=== PATIENT | female | born 1975 | race Caucasian/White ===

== ENCOUNTER 2016-09-18 17:18 | Emergency (ER) | payer OTHER ==
[~2016-09-18] VITALS: Ht 165.1 cm; Wt 104.6 kg
[~2016-09-18 17:18] MED LIST: BUSP10TA; ONDA4TAB7
[2016-09-18] MEDS ORDERED: LORazepam 1MG TABLET ONE (17:29)
[2016-09-18] MEDS ORDERED: LORazepam 1MG TABLET PO ONE (17:30)
[2016-09-18] MEDS ORDERED: METH500T7 PO (17:35)
[2016-09-18] MEDS ORDERED: SUCR1TAB PO (17:35)
[2016-09-18] MEDS ORDERED: OXYC-302 PO (17:35)
[2016-09-18 17:49] LABS: HEMOGLOBIN 12.9 g/dL (11.7-16.4)
[2016-09-18 17:56] LABS: BLOOD UREA NITROGEN 9 mg/dL (7-18)
[2016-09-18] MEDS ORDERED: POTASSIUM CHLORIDE 20 MEQ TAB.ER.PRT PO ONE (18:30)
[2016-09-18] MEDS ORDERED: POTASSIUM CHLORIDE 20 MEQ TAB.ER.PRT ONE (19:18)
[2016-09-18 20:50] VITALS: BP 138/95
== END 2016-09-18 20:52 | disposition home or self-care (01) ==
LOC: ED 19:15
DX: O26.891 Other specified pregnancy related conditions, first trimester (principal); F41.1 Generalized anxiety disorder; E87.6 Hypokalemia; F17.200 Nicotine dependence, unspecified, uncomplicated
CPT/HCPCS: 36415; 76830; 80048; 82040; 84702; 84703; 85025; 93005

== ENCOUNTER 2016-10-21 11:25 | Emergency (ER) | payer OTHER ==
[~2016-10-21] VITALS: Ht 165.1 cm; Wt 104.8 kg
[~2016-10-21 11:25] MED LIST changes: +METH500T7 PO; +OXYC-302 PO; +SUCR1TAB PO
[2016-10-21 11:27] VITALS: BP 122/84
[2016-10-21] MEDS ORDERED: AMIT25TA PO (12:01)
[2016-10-21] MEDS ORDERED: FAMO-79 PO (12:01)
[2016-10-21] MEDS ORDERED: HYDROcodone/APAP 5/325 TABLET PO ONE (12:30)
[2016-10-21] MEDS ORDERED: HYDROcodone/APAP 5/325 TABLET ONE (12:34)
[2016-10-21] MEDS ORDERED: LORazepam 1MG TABLET ONE (14:55)
[2016-10-21] MEDS ORDERED: LORazepam 1MG TABLET PO ONE (15:00)
== END 2016-10-21 15:21 | disposition home or self-care (01) ==
LOC: ED 11:40
DX: O03.4 Incomplete spontaneous abortion without complication (principal); Z3A.08 8 weeks gestation of pregnancy
CPT/HCPCS: 36415; 76830; 81003; 84702; 85025; 86901

== ENCOUNTER 2016-10-22 21:02 | Emergency (ER) | payer OTHER ==
[~2016-10-22] VITALS: Ht 165.1 cm; Wt 106.0 kg
[~2016-10-22 21:02] MED LIST changes: +AMIT25TA PO; +FAMO-79 PO
[2016-10-22] MEDS ORDERED: ONDANSETRON ODT 4 MG PO ONE (22:00)
[2016-10-22] MEDS ORDERED: OXYcodone/APAP 5/325MG TABLET PO ONE (22:00)
[2016-10-22] MEDS ORDERED: ONDANSETRON ODT 4 MG ONE (22:38)
[2016-10-22] MEDS ORDERED: OXYcodone/APAP 5/325MG TABLET ONE (22:38)
[2016-10-22] MEDS ORDERED: MORPHINE SULFATE 4 MG/ML, 1ML ONE (22:44)
[2016-10-22] MEDS ORDERED: ONDANSETRON 2MG/ML, 2ML ONE (22:44)
[2016-10-22] MEDS ORDERED: SODIUM CHLORIDE FLUSH 10ML SYR IVF ONE (23:00)
[2016-10-22] MEDS ORDERED: MORPHINE SULFATE 4 MG/ML, 1ML IVPush PRN (23:00)
[2016-10-22] MEDS ORDERED: SODIUM CHLORIDE 0.9% 1,000ML IVBOLUS ONE (23:00)
[2016-10-22] MEDS ORDERED: ONDANSETRON 2MG/ML, 2ML IVPush ONE (23:00)
[2016-10-22 23:28] VITALS: BP 112/71
== END 2016-10-23 01:00 | disposition home or self-care (01) ==
LOC: ED 23:59
DX: O03.4 Incomplete spontaneous abortion without complication (principal)
CPT/HCPCS: 36415; 85025; 96361; 96374; 96375; 99284; J2405; J7030

== ENCOUNTER 2017-01-17 08:37 | Emergency (ER) | payer OTHER ==
[~2017-01-17] VITALS: Ht 165.1 cm; Wt 102.0 kg
[2017-01-17] MEDS ORDERED: PANTOPRAZOLE 20MG TABLET PO ONE (10:00)
[2017-01-17] MEDS ORDERED: MAALOX/HYOSCYAMINE/LIDOCAINE 45 ML BTL PO ONE (10:00)
[2017-01-17] MEDS ORDERED: LORazepam 2 MG/ML, 1ML IM ONE (10:00)
[2017-01-17] MEDS ORDERED: MAALOX/HYOSCYAMINE/LIDOCAINE 45 ML BTL ONE (10:21)
[2017-01-17] MEDS ORDERED: PANTOPRAZOLE 20MG TABLET ONE (10:21)
[2017-01-17] MEDS ORDERED: LORazepam 2 MG/ML, 1ML ONE (10:22)
[2017-01-17 12:27] VITALS: BP 125/83
== END 2017-01-17 12:29 | disposition home or self-care (01) ==
LOC: ED 09:58
DX: F41.1 Generalized anxiety disorder (principal); K22.6 Gastro-esophageal laceration-hemorrhage syndrome; K21.9 Gastro-esophageal reflux disease without esophagitis; J45.909 Unspecified asthma, uncomplicated; F32.9 Major depressive disorder, single episode, unspecified
CPT/HCPCS: 96372; 99283; J2060

== ENCOUNTER 2017-03-11 12:34 | Emergency (ER) | payer OTHER ==
[~2017-03-11] VITALS: Ht 165.1 cm; Wt 100.0 kg
[2017-03-11] MEDS ORDERED: ONDANSETRON 2MG/ML, 2ML ONE (13:19)
[2017-03-11] MEDS ORDERED: LORazepam 2 MG/ML, 1ML ONE (13:20)
[2017-03-11] MEDS ORDERED: SODIUM CHLORIDE FLUSH 10ML SYR IVF ONE (13:30)
[2017-03-11] MEDS ORDERED: ONDANSETRON 2MG/ML, 2ML IVPush ONE (13:30)
[2017-03-11] MEDS ORDERED: LORazepam 2 MG/ML, 1ML IVPush ONE (13:30)
[2017-03-11 13:39] LABS: HEMATOCRIT 38.3 % (34.6-47.8); WHITE BLOOD COUNT 9.5 x10^3/uL (3.4-10)
[2017-03-11 13:49] LABS: ASPARTATE AMINO TRANSFERASE 28 U/L (15-37); BLOOD UREA NITROGEN 12 mg/dL (7-18)
[2017-03-11 13:55] LABS: IS PT STATUS REG ER OR PRE ER? YES
[2017-03-11] MEDS ORDERED: KETOROLAC 30 MG/1 ML ONE (15:11)
[2017-03-11] MEDS ORDERED: KETOROLAC 30 MG/1 ML IVPush ONE (15:30)
[2017-03-11 16:31] LABS: IS PT STATUS REG ER OR PRE ER? YES
[2017-03-11 16:57] VITALS: BP 140/79
== END 2017-03-11 16:59 | disposition home or self-care (01) ==
LOC: ED 12:51
DX: F41.1 Generalized anxiety disorder (principal); R06.4 Hyperventilation; R07.9 Chest pain, unspecified; K21.9 Gastro-esophageal reflux disease without esophagitis; J45.909 Unspecified asthma, uncomplicated; F17.200 Nicotine dependence, unspecified, uncomplicated
CPT/HCPCS: 36415; 71010; 80053; 83880; 84484; 85025; 85610; 85730; 93005; 96374; 96375; 99285; J1885; J2060; J2405

== ENCOUNTER 2017-08-15 04:59 | Emergency (ER) | payer OTHER ==
[~2017-08-15] VITALS: Ht 162.6 cm; Wt 109.0 kg
[2017-08-15] MEDS ORDERED: SODIUM CHLORIDE 0.9% 1,000 ML IV ONE (05:22)
[2017-08-15] MEDS ORDERED: ONDANSETRON 2MG/ML, 2ML IVPush ONE (05:30)
[2017-08-15] MEDS ORDERED: SODIUM CHLORIDE FLUSH 10ML SYR IVF ONE (05:30)
[2017-08-15] MEDS ORDERED: SODIUM CHLORIDE 0.9% 1,000ML IVBOLUS ONE (05:30)
[2017-08-15] MEDS ORDERED: DICYCLOMINE 10 MG/ML, 2ML IM ONE (05:30)
[2017-08-15] MEDS ORDERED: DICYCLOMINE 10 MG/ML, 2ML ONE (05:35)
[2017-08-15] MEDS ORDERED: ONDANSETRON 2MG/ML, 2ML ONE (05:35)
[2017-08-15 05:37] LABS: BASOPHILS # (AUTO) 0.01 x10^3/uL (0-0.1); BASOPHILS % (AUTO) 0 % (0-1); EOSINOPHILS % (AUTO) 1 % (1-7); LYMPHOCYTES # (AUTO) 0.44 x10^3/uL (1-3.4); LYMPHOCYTES % (AUTO) 4 % (22-44); MD NO; MEAN CORPUSCULAR HEMOGLOBIN 31.8 pg (27.0-34.8); MEAN CORPUSCULAR HGB CONC 34.3 g/dL (32.4-35.8); MEAN CORPUSCULAR VOLUME 92.7 fL (80-100); MEAN PLATELET VOLUME 7.9 fL (7.4-10.4); MONOCYTES # (AUTO) 0.33 x10^3/uL (0.2-0.8); MONOCYTES % (AUTO) 3 % (2-9); NEUTROPHILS # (AUTO) 10.99 x10^3/uL (1.8-6.8); NEUTROPHILS % (AUTO) 93 % (42-75); PLATELET COUNT 362 x10^3/uL (130-400); RED BLOOD COUNT 4.83 x10^6/uL (3.82-5.3); RED CELL DISTRIBUTION WIDTH 14.6 % (9.6-15.2)
[2017-08-15 05:48] LABS: ALANINE AMINOTRANSFERASE 32 U/L (12-78); ALBUMIN 3.9 g/dL (3.4-5.0); ANION GAP 12 mmol/L (5-15); CALCIUM 9.2 mg/dL (8.5-10.1); CHLORIDE 108 mmol/L (98-107); CREATININE 0.93 mg/dL (0.55-1.02)
[2017-08-15 05:53] LABS: ALKALINE PHOSPHATASE 110 U/L (45-117); BILIRUBIN,TOTAL 0.8 mg/dL (0.2-1.0)
[2017-08-15 07:42] LABS: RAPID INFLUENZA A Negative (Negative); RAPID INFLUENZA B Negative (Negative)
[2017-08-15 07:55] LABS: MICROSCOPIC INDICATED
[2017-08-15 08:02] LABS: CULTURE INDICATED? YES
[2017-08-15] MEDS ORDERED: OMNIPAQUE 350 MG/ML, 150 ML BOTTLE ONE (08:55)
[2017-08-15 09:17] LABS: CLOSTRIDIUM DIFFICILE ANTIGEN NEGATIVE; CLOSTRIDIUM DIFFICILE TOXIN NEGATIVE (Negative)
[2017-08-15 10:20] VITALS: BP 122/82
== END 2017-08-15 10:24 | disposition home or self-care (01) ==
LOC: ED 06:57
DX: K52.9 Noninfective gastroenteritis and colitis, unspecified (principal); G89.29 Other chronic pain; K21.9 Gastro-esophageal reflux disease without esophagitis
CPT/HCPCS: 36415; 74177; 80053; 81001; 83690; 84703; 85025; 87086; 87324; 87400; 89055; 93005; 96361; 96372; 96374; 99285; J0500; J2405; J7030; Q9967

== ENCOUNTER 2018-11-23 17:33 | Emergency (ER) | payer OTHER ==
[~2018-11-23] VITALS: Ht 165.1 cm; Wt 109.0 kg
--- NOTE | 2018-11-23 18:04 | NUR ---
CONTACT WITH PT, 43 YR OLD FEMALE HERE WITH C/O "I'M HAVING AN ANXIETY ATTACK. OUT OF XANAX. TOOK THE LAST ONE YESTERDAY"
[2018-11-23] MEDS ORDERED: ONDANSETRON ODT 4 MG ONE (18:30)
--- NOTE | 2018-11-23 18:32 | NUR ---
PT WITH EPISODE OF DRY HEAVING AND VOMITING. "HAS BEEN GOING ON TODAY" DISCUSSED WITH DR HOUSTON, [facility]. PT CONT SR PER MONITOR. PTS MOTHER AT BEDSIDE.
[2018-11-23 18:34] LABS: BASOPHILS # (AUTO) 0.07 x10^3/uL (0-0.1); BASOPHILS % (AUTO) 1 % (0-1); EOSINOPHILS # (AUTO) 0.04 x10^3/uL (0-0.4); EOSINOPHILS % (AUTO) 1 % (1-7); LYMPHOCYTES # (AUTO) 2.08 x10^3/uL (1-3.4); LYMPHOCYTES % (AUTO) 24 % (22-44); MD NO; MEAN CORPUSCULAR HGB CONC 33.2 g/dL (32.4-35.8); MEAN CORPUSCULAR VOLUME 93.5 fL (80-100); MEAN PLATELET VOLUME 8.2 fL (7.4-10.4); MONOCYTES # (AUTO) 0.64 x10^3/uL (0.2-0.8); MONOCYTES % (AUTO) 7 % (2-9); NEUTROPHILS # (AUTO) 5.86 x10^3/uL (1.8-6.8); NEUTROPHILS % (AUTO) 67 % (42-75); PLATELET COUNT 325 x10^3/uL (130-400); RED BLOOD COUNT 4.65 x10^6/uL (3.82-5.3); RED CELL DISTRIBUTION WIDTH 14.6 % (9.6-15.2)
[2018-11-23 18:44] LABS: ALBUMIN 3.7 g/dL (3.4-5.0); ANION GAP 9 mmol/L (5-15); CHLORIDE 110 mmol/L (98-107); CREATININE 0.91 mg/dL (0.55-1.02)
[2018-11-23] MEDS ORDERED: ONDANSETRON ODT 4 MG PO ONE (19:00)
--- NOTE | 2018-11-23 19:00 | NUR ---
REPORT TO YUMIKO VINES
--- NOTE | 2018-11-23 19:01 | NUR ---
received report from MOHINDER Kaye. chart up for re-evaluation.
[2018-11-23 19:23] VITALS: BP 119/75
--- NOTE | 2018-11-23 19:23 | NUR ---
re-evaluation done. patient discharged with instruction. verbalized understanding.
--- NOTE | 2018-11-23 19:23 | NUR ---
states feeling much better.
== END 2018-11-23 19:25 | disposition home or self-care (01) ==
LOC: ED 18:30
DX: F41.1 Generalized anxiety disorder (principal); R06.4 Hyperventilation; F32.9 Major depressive disorder, single episode, unspecified; K21.9 Gastro-esophageal reflux disease without esophagitis; F43.10 Post-traumatic stress disorder, unspecified; K22.6 Gastro-esophageal laceration-hemorrhage syndrome; F17.200 Nicotine dependence, unspecified, uncomplicated; J45.909 Unspecified asthma, uncomplicated
CPT/HCPCS: 36415; 80048; 82040; 85025; 93005; 99284; Q0162

== ENCOUNTER 2019-08-25 15:46 | Emergency (ER) | payer OTHER ==
[~2019-08-25] VITALS: Ht 165.1 cm; Wt 114.7 kg
[2019-08-25 17:41] LABS: BASOPHILS # (AUTO) 0.07 x10^3/uL (0-0.1); BASOPHILS % (AUTO) 1 % (0-1); EOSINOPHILS # (AUTO) 0.08 x10^3/uL (0-0.4); EOSINOPHILS % (AUTO) 2 % (1-7); LYMPHOCYTES # (AUTO) 1.86 x10^3/uL (1-3.4); LYMPHOCYTES % (AUTO) 33 % (22-44); MD NO; MEAN CORPUSCULAR HEMOGLOBIN 31.6 pg (27.0-34.8); MEAN CORPUSCULAR HGB CONC 33.8 g/dL (32.4-35.8); MEAN CORPUSCULAR VOLUME 93.4 fL (80-100); MONOCYTES # (AUTO) 0.51 x10^3/uL (0.2-0.8); MONOCYTES % (AUTO) 9 % (2-9); NEUTROPHILS # (AUTO) 3.15 x10^3/uL (1.8-6.8); NEUTROPHILS % (AUTO) 56 % (42-75); PLATELET COUNT 327 x10^3/uL (130-400); RED BLOOD COUNT 3.88 x10^6/uL (3.82-5.3); RED CELL DISTRIBUTION WIDTH 13.4 % (9.6-15.2)
[2019-08-25 17:46] LABS: ALBUMIN 3.1 g/dL (3.4-5.0); ANION GAP 8 mmol/L (5-15); CALCIUM 8.1 mg/dL (8.5-10.1); CHLORIDE 109 mmol/L (98-107); CREATININE 0.75 mg/dL (0.55-1.02)
[2019-08-25 17:51] LABS: TROPONIN I < 0.015 ng/mL (0.000-0.045)
--- NOTE | 2019-08-25 18:02 | NUR ---
PT AMBULATED STEADILY TO ROOM FROM [facility] C/O HAVE RESOLVED, CHANGED INTO GOWN, RESPONDS APPROP TO STAFF, COMFORT MEASURES PROVIDED, DAUGHTER AT BS, CALL LIGHT WITHIN REACH.
[2019-08-25 18:20] VITALS: BP 120/76
[2019-08-25] MEDS ORDERED: LORazepam 1MG TABLET PO ONE (19:00)
[2019-08-25] MEDS ORDERED: LORazepam 1MG TABLET ONE (19:03)
--- NOTE | 2019-08-25 19:13 | NUR ---
report from jose luis, medicated for anxiety at this time pt in nad
== END 2019-08-25 19:39 | disposition home or self-care (01) ==
LOC: ED 16:46
DX: R07.89 Other chest pain (principal); F41.1 Generalized anxiety disorder; R06.4 Hyperventilation; K21.9 Gastro-esophageal reflux disease without esophagitis; J45.909 Unspecified asthma, uncomplicated; F17.200 Nicotine dependence, unspecified, uncomplicated; Z90.89 Acquired absence of other organs
CPT/HCPCS: 36415; 71045; 80048; 82040; 84484; 85025; 93005; 99285

== ENCOUNTER 2020-04-26 10:42 | Emergency (ER) | payer MEDICAID, OTHER ==
[~2020-04-26] VITALS: Ht 162.6 cm; Wt 113.5 kg
[2020-04-26] MEDS ORDERED: ALBUTEROL INH (10:57)
--- NOTE | 2020-04-26 10:58 | NUR ---
PT REPORTS CHRONIC BACK PAIN. CURRENT SX STARTED SUNDAY; WORSENED TODAY WHILE BUSHING SNOW OFF THE CAR. EMS: IV 20G RT HAND, FENTANYL 100MCG X 2 (LAST DOSE AT 1032). PT STATES EMS ALSO GAVE HER ZOFRAN. C/O LT LOW BACK PAIN, SPASMING. DENIES NUMBNESS/TINGLING TO LE's, NO FOOT DROP. ABLE TO STAND AT BEDSIDE W/OUT ASSIST. ABLE TO GET UNDRESSED AND INTO HOSPITAL GOWN W/OUT ASSIST. RESP EVEN & UNLABORED, SPEECH CLEAR, SKIN WNL. PT STATES SHE TOOK METHOCARBAMOL 750MG X 2 THIS MORNING.
[2020-04-26] MEDS ORDERED: KETOROLAC 30 MG/1 ML ONE (11:51)
[2020-04-26] MEDS ORDERED: DIAZEPAM 5 MG/ML, 2ML ONE (11:51)
[2020-04-26] MEDS ORDERED: ONDANSETRON 2MG/ML, 2ML ONE (11:51)
[2020-04-26] MEDS ORDERED: ONDANSETRON 2MG/ML, 2ML IVPush ONE (12:00)
[2020-04-26] MEDS ORDERED: KETOROLAC 30 MG/1 ML IVPush ONE (12:00)
[2020-04-26] MEDS ORDERED: DIAZEPAM 5 MG/ML, 2ML IVPush ONE (12:00)
--- NOTE | 2020-04-26 12:01 | NUR ---
ZOFRAN, TORADOL AND VALIUM GIVEN. IV SITE PATENT.
--- NOTE | 2020-04-26 12:10 | NUR ---
O2 SAT UPPER 70S-LOW 90S. PT ADMITS TO HOLDING BREATH DURING MUSCLE SPASMS. O2 2LNC APPLIED.
--- NOTE | 2020-04-26 13:06 | NUR ---
REPORTS SPASMS HAVE STOPPED, PAIN AND NAUSEA HAVE DECREASED.
--- NOTE | 2020-04-26 13:09 | NUR ---
RA O2 SAT: 93%. O2 DC'D
[2020-04-26 14:30] VITALS: BP 125/80
== END 2020-04-26 15:13 | disposition home or self-care (01) ==
LOC: ED 12:30
DX: S39.012A Strain of muscle, fascia and tendon of lower back, initial encounter (principal); J45.909 Unspecified asthma, uncomplicated; X58.XXXA Exposure to other specified factors, initial encounter; Y93.89 Activity, other specified; Y92.89 Other specified places as the place of occurrence of the external cause; Y99.8 Other external cause status
CPT/HCPCS: 96374; 96375; 99284; J1885; J2405; J3360